=== PATIENT | male | born 1945 | race Caucasian/White ===

== ENCOUNTER 2017-11-08 14:54 | Emergency (ER) | payer MEDICARE, BC ==
[~2017-11-08] VITALS: Ht 170.2 cm; Wt 60.8 kg
--- NOTE | 2017-11-08 14:55 | NUR ---
BB daughter to ER; AMS - progressive; last known well - 1220 PM, expressive aphasia noted; left upper side weakness, pt was put on monitor, and [facility] md paul at bs.
--- NOTE | 2017-11-08 14:57 | NUR ---
CALLED CODE STROKE
[2017-11-08] MEDS ORDERED: CT SWABBABLE VALVE TRANS SET 1 EA INFUS.SET MC ONE (15:00)
[2017-11-08] MEDS ORDERED: IV NS 0.9% 250 ML IV ONE (15:00)
[2017-11-08] MEDS ORDERED: IV NS 0.9% 1,000 ML BAG IV ONE (15:00)
[2017-11-08] MEDS ORDERED: IOHEXOL-350 100 ML VIAL IV ONE (15:00)
--- NOTE | 2017-11-08 15:03 | NUR ---
CALLED [facility]'S TELESTROKE HOTLINE, SPOKE WITH ADIS, PRESENTED PT, AWAITING CALL BACK FROM DR. BOSTON (NEUROLOGIST).
--- NOTE | 2017-11-08 15:04 | NUR ---
DR. MCKENZIE ON PHONE WITH
--- NOTE | 2017-11-08 15:11 | NUR ---
PT BACK FROM CT
[2017-11-08 15:13] LABS: BASOPHILS % (AUTO) 0.3 % (0.0-2.0); EOSINOPHILS % (AUTO) 0.9 % (0.0-6.0); HEMATOCRIT 36 % (39-51); LYMPHOCYTES # (AUTO) 2.8 /CMM (0.8-4.8); LYMPHOCYTES % (AUTO) 19.2 % (20.0-44.0); MEAN CORPUSCULAR HGB CONC 34 g/dl (31.0-36.0); MEAN CORPUSCULAR VOLUME 87 fL (80-96); MONOCYTES % (AUTO) 7.1 % (2.0-12.0); NEUTROPHILS # (AUTO) 10.4 /CMM (1.8-8.9); NEUTROPHILS % (AUTO) 72.5 % (43.0-81.0); PLATELET COUNT (AUTO) 490 /CMM (150-450); RDW COEFFICIENT OF VARIATION 14.3 (11.5-15.0); RED BLOOD CELL COUNT(AUTO) 4.07 MIL/uL (4.5-6.0); WHITE BLOOD COUNT (AUTO) 14.4 K/uL (4.3-11.0)
[2017-11-08] MEDS ORDERED: ALTEPLASE 100 MG/VIAL VIAL IV ONE ×2 (15:30→16:00)
[2017-11-08 15:33] LABS: INR 0.97 (0.87-1.13)
--- NOTE | 2017-11-08 15:33 | NUR ---
IVP OVER 1 MINUTE: 5.5 MG IVP SLOW LAC PIV # 20 LAC CORRECT DOSE - WITNESSED BY 2 RNS - AKHIL AND JEY ALSO-CORRECT DOSE WTNESSED BY 1 PHARMACIST - YAKOV, PHARM D AND THE STUDENT
[2017-11-08 15:42] LABS: CALCIUM, SERUM 9.1 mg/dL (8.5-10.1); CARBON DIOXIDE 24 mmol/L (21-32); CHLORIDE 87 mmol/L (98-107); CREATININE 1.7 mg/dL (0.6-1.3); GLUCOSE 125 mg/dL (74-106); POTASSIUM 4.4 mmol/L (3.5-5.1); SODIUM SERUM 123 mmol/L (136-145); UREA NITROGEN, BLOOD 17 mg/dL (7-18)
--- NOTE | 2017-11-08 15:43 | NUR ---
xray at bs
[2017-11-08 15:48] LABS: ALANINE AMINOTRANSFERASE 27 U/L (12-78); ALBUMIN 3.5 g/dL (3.4-5.0); ALKALINE PHOSPHATASE 56 U/L (46-116); ASPARTATE AMINOTRANSFERASE 29 U/L (15-37); BILIRUBIN,DIRECT 0.2 mg/dL (0.0-0.2); BILIRUBIN,TOTAL 0.7 mg/dL (0.2-1.0); TOTAL PROTEIN, SERUM 8.1 g/dL (6.4-8.2)
[2017-11-08 15:50] LABS: TROPONIN I < 0.017 ng/mL (0.00-0.056)
--- NOTE | 2017-11-08 16:07 | NUR ---
Patient Tranfers to [facility] , report given to JANAE Obregon, tpa infusing upon transfer.
[2017-11-08 16:10] VITALS: BP 148/76
[2017-11-08] MEDS ORDERED: ONDANSETRON HCL/PF 4 MG/2 ML VIAL ONE (16:10)
[2017-11-08 16:25] LABS: CHOLESTEROL 154 mg/dL (<200); HDL CHOLESTEROL 40 mg/dL (40-60); LDL 87 mg/dL (0-99); TRIGLYCERIDES 189 mg/dL (30-150)
[2017-11-08] MEDS ORDERED: ONDANSETRON HCL/PF 4 MG/2 ML VIAL IV ONE (16:30)
== END 2017-11-08 16:39 | disposition short-term general hospital (02) ==
LOC: ER 14:55
DX: I63.9 Cerebral infarction, unspecified (principal); E87.1 Hypo-osmolality and hyponatremia; D72.829 Elevated white blood cell count, unspecified; R47.01 Aphasia; I65.22 Occlusion and stenosis of left carotid artery; I70.0 Atherosclerosis of aorta; N40.0 Benign prostatic hyperplasia without lower urinary tract symptoms
CPT/HCPCS: 36415; 70450-TC; 70496-TC; 70498-TC; 71045-TC; 80048-TC; 80061-TC; 80076-TC; 82962-TC; 84484-TC; 85025-TC; 85730-TC; A4606; J2405; J2997; J7050; Q9967; Z7610

== ENCOUNTER 2018-03-25 14:36 | Inpatient (IN) | payer MEDICARE, BC ==
[~2018-03-25] VITALS: Ht 177.8 cm; Wt 72.6 kg
--- NOTE | 2018-03-25 14:46 | NUR ---
PT BIB FAMILY TO ER BED 11. C/O R HIP PAIN S/P SLIP AND FALL AT THE BATHROOM 1 HOUR AGO. PT DENIES HEAD TRAUMA. HX OF STROKE. FAMILY STATES NO DEFICIT. STABLE VITALS. AWAITING MD SEN.
--- NOTE | 2018-03-25 14:50 | NUR ---
DR LOPEZ AT BEDSIDE FOR EVAL.
--- NOTE | 2018-03-25 14:56 | NUR ---
Note geraldspike in EDM - 03/25/18 at 1503 by NURIS PT BIB FAMILY TO ER BED 11. C/O R HIP PAIN S/P SLIP AND FALL AT THE BATHROOM 1 HOUR AGO. PT DENIES HEAD TRAUMA. HX OF STROKE. FAMILY STATES NO DEFICIT. STABLE VITALS. AWAITING MD SEN.
[2018-03-25] MEDS ORDERED: IV NS 0.9% 1,000 ML BAG IV ONE (15:00)
[2018-03-25] MEDS ORDERED: HYDROMORPHONE 1 MG/1 ML DISP.SYRIN IV ONE (15:00)
[2018-03-25] MEDS ORDERED: HYDROMORPHONE INJ 2 MG/ML DISP.SYRIN ONE (15:15)
[2018-03-25 15:16] LABS: BASOPHILS # (AUTO) 0.1 /CMM (0.0-0.2); BASOPHILS % (AUTO) 0.7 % (0.0-2.0); EOSINOPHILS % (AUTO) 0.7 % (0.0-6.0); HEMATOCRIT 36 % (39-51); HEMOGLOBIN 12.1 g/dL (13.5-17.5); LYMPHOCYTES # (AUTO) 1.7 /CMM (0.8-4.8); LYMPHOCYTES % (AUTO) 14.1 % (20.0-44.0); MEAN CORPUSCULAR HEMOGLOBIN 29 PG (26.0-33.0); MEAN CORPUSCULAR HGB CONC 33 g/dl (31.0-36.0); MEAN CORPUSCULAR VOLUME 86 fL (80-96); MONOCYTES # (AUTO) 0.6 /CMM (0.1-1.30); MONOCYTES % (AUTO) 5.3 % (2.0-12.0); NEUTROPHILS # (AUTO) 9.6 /CMM (1.8-8.9); NEUTROPHILS % (AUTO) 79.2 % (43.0-81.0); PLATELET COUNT (AUTO) 340 /CMM (150-450); RDW COEFFICIENT OF VARIATION 13.8 (11.5-15.0); RED BLOOD CELL COUNT(AUTO) 4.23 MIL/uL (4.5-6.0); WHITE BLOOD COUNT (AUTO) 12.1 K/uL (4.3-11.0)
[2018-03-25 15:25] LABS: CALCIUM, SERUM 9.4 mg/dL (8.5-10.1); CARBON DIOXIDE 25 mmol/L (21-32); CHLORIDE 103 mmol/L (98-107); CREATININE 1.1 mg/dL (0.6-1.3); GLUCOSE 134 mg/dL (74-106); POTASSIUM 4.1 mmol/L (3.5-5.1); SODIUM SERUM 136 mmol/L (136-145); UREA NITROGEN, BLOOD 12 mg/dL (7-18)
[2018-03-25 15:29] LABS: INR 0.94 (0.85-1.15)
--- NOTE | 2018-03-25 16:23 | NUR ---
CALLED KEITH THOMAS, INSERT CUTTER WAS PAGED.
[2018-03-25] MEDS ORDERED: IV NS 0.9% 1,000 ML IV PRN (16:38)
[2018-03-25] MEDS ORDERED: LIDOCAINE 2% JEL UROJET 10 ML MM ONE (16:42)
[2018-03-25] MEDS ORDERED: MAG HYDROX/AL HYDROX/SIMETH 30 ML UDC PO PRN (17:00)
[2018-03-25] MEDS ORDERED: Z GUARD REMEDY 2 OZ OINT TP PRN (17:00)
[2018-03-25] MEDS ORDERED: ZOLPIDEM TARTRATE 5 MG TABLET PO PRN (17:00)
[2018-03-25] MEDS ORDERED: HYDROCODONE/APAP 5/325MG 1 EACH TABLET PO PRN (17:00)
[2018-03-25] MEDS ORDERED: MAGNESIUM HYDROXIDE 30 ML UDC PO PRN (17:00)
[2018-03-25] MEDS ORDERED: ONDANSETRON HCL/PF 4 MG/2 ML VIAL IVP PRN (17:00)
[2018-03-25] MEDS ORDERED: ACETAMINOPHEN 325 MG TABLET PO PRN (17:00)
--- NOTE | 2018-03-25 17:00 | NUR ---
REPORT GIVEN TO SILVIA. PT AWAITING TRANSFER TO FLOOR.
[2018-03-25] MEDS ORDERED: ALFU10TA10 PO (17:08)
[2018-03-25] MEDS ORDERED: SIMV40TA5 PO (17:08)
[2018-03-25] MEDS ORDERED: ASPI-1169 PO (17:08)
--- NOTE | 2018-03-25 18:00 | NUR ---
MS RN RECEIVED ON BED, AWAKE,ALERT,ORIENTED X4,IRAQI SPEAKING MAN, S/P FALL W/ RIGHT FEMORAL NECK FRACTURE, DENES PAIN AT THIS TIME,FAMILY AT BEDSIDE.
--- NOTE | 2018-03-25 19:05 | NUR ---
MS RN AT BEDSIDE, DINNER SERVED,STARTED ON IV,TOLERATED WELL.
--- NOTE | 2018-03-25 19:10 | NUR ---
MS RN OPENING NOTE Patient was seen sitting upright in bed AAOx4, breathing comfortably on RA with no SOB, and currently no signs of acute distress. NS at 75ml/hr is running through the left AC with no signs of leaking or infiltration. Patel is draining clear yellow urine. Patient with right femoral fracture states that he only has pain with movement and that he is currently without pain at rest; patient does not request any medications for pain relief at this time. Bed is in the low/locked position, two side rails up, and call wang within reach. Will continue to monitor.
[2018-03-25 19:49] VITALS: BP 136/65
[2018-03-25 20:00] VITALS: BP 136/65
[2018-03-25] MEDS: HYDROMORPHONE INJ 2 MG/ML DISP.SYRIN IV PRN (21:30)
--- NOTE | 2018-03-25 21:30 | NUR ---
MS RN NOTE - Dilaudid Patient requested pain medication for 03/21 right hip/leg pain primarily occurring with movement and position change (s/p fracture to the right femoral neck). 0.5mg IV Dilaudid administered as ordered for severe pain. Will continue to monitor.
--- NOTE | 2018-03-26 00:19 | NUR ---
MS RN NOTE - Ambien Patient stated that he has had difficulty sleeping tonight and requested Ambien to help him sleep. 5mg PO Ambien administered per orders for prn use. Will continue to monitor.
[2018-03-26 03:01] LABS: APPEARANCE,URINE CLEAR (CLEAR); BILIRUBIN,URINE NEGATIVE (NEGATIVE); BLOOD, URINE 2+ Ery/uL (NEGATIVE); COLOR,URINE YELLOW (YELLOW); KETONES,URINE 1+ (NEGATIVE); LEUKOCYTE ESTERASE ,URINE NEGATIVE (NEGATIVE); NITRITE, URINE NEGATIVE (NEGATIVE); PROTEIN,URINE NEGATIVE (NEGATIVE); UGLUCOSE NEGATIVE (NEGATIVE); UROBILINOGEN,URINE 0.2 EU/dL (0.2)
[2018-03-26 03:05] LABS: BACTERIA,URINE None seen /HPF (None Seen); SQUAMOUS EPITHELIAL CELL,UR Few /HPF (None Seen); WBC,URINE 0-2 /HPF (0-3)
[2018-03-26] MEDS: HYDROMORPHONE INJ 2 MG/ML DISP.SYRIN IV PRN ×4 (03:38→18:28)
--- NOTE | 2018-03-26 03:38 | NUR ---
MS RN NOTE - Dilaudid Patient requested pain medication for 8/10 pain in the right hip/leg (s/p hip fracture). Pain is worse with movement, but pain also states that he is experiencing intermittent shooting pain without movement. 0.5mg IV Dilaudid given as ordered for severe pain. Patient has had no adverse reactions to previous dose of Dilaudid. Will continue to monitor.
[2018-03-26] MEDS: HYDROCODONE/APAP 5/325MG 1 EACH TABLET PO PRN (06:01)
--- NOTE | 2018-03-26 06:01 | NUR ---
MS RN NOTE - [place] Patient requested pain medication for 6/10 right hip pain. 5/325mg PO [place] given as ordered for prn pain relief.
--- NOTE | 2018-03-26 07:10 | NUR ---
RN NOTES PT IS SITTING UP IN BED, AWAKE AND ALERT, RESTING COMFORTABLY. PT ON RA, RESPIRATIONS ARE EVEN AND UNLABORED. IV ON LAC INTACT AND RUNNING NS @75ML/HR. MARKS CATHETER IS IN PLACE AND DRAINING TO GRAVITY. NO SIGNS OF DISTRESS NOTED. SAFETY MEASURES ARE IN PLACE, CALL LIGHT IS IN REACH. WILL CONTINUE TO MONITOR.
[2018-03-26 07:17] LABS: BASOPHILS % (AUTO) 0.2 % (0.0-2.0); EOSINOPHILS % (AUTO) 0.6 % (0.0-6.0); HEMATOCRIT 32 % (39-51); HEMOGLOBIN 10.9 g/dL (13.5-17.5); LYMPHOCYTES # (AUTO) 1.4 /CMM (0.8-4.8); LYMPHOCYTES % (AUTO) 14.7 % (20.0-44.0); MEAN CORPUSCULAR HEMOGLOBIN 30 PG (26.0-33.0); MEAN CORPUSCULAR HGB CONC 34 g/dl (31.0-36.0); MEAN CORPUSCULAR VOLUME 88 fL (80-96); MONOCYTES # (AUTO) 0.4 /CMM (0.1-1.30); MONOCYTES % (AUTO) 4.7 % (2.0-12.0); NEUTROPHILS # (AUTO) 7.5 /CMM (1.8-8.9); NEUTROPHILS % (AUTO) 79.8 % (43.0-81.0); PLATELET COUNT (AUTO) 294 /CMM (150-450); RDW COEFFICIENT OF VARIATION 14.6 (11.5-15.0); WHITE BLOOD COUNT (AUTO) 9.4 K/uL (4.3-11.0)
[2018-03-26 07:39] LABS: CALCIUM, SERUM 8.5 mg/dL (8.5-10.1); CARBON DIOXIDE 25 mmol/L (21-32); CHLORIDE 103 mmol/L (98-107); CREATININE 0.8 mg/dL (0.6-1.3); GLUCOSE 110 mg/dL (74-106); MAGNESIUM 1.9 mg/dL (1.8-2.4); PHOSPHORUS 2.9 mg/dL (2.5-4.9); POTASSIUM 4.2 mmol/L (3.5-5.1); SODIUM SERUM 137 mmol/L (136-145); UREA NITROGEN, BLOOD 10 mg/dL (7-18)
--- NOTE | 2018-03-26 07:39 | NUR ---
MS RN CLOSING NOTE Patient is AAOx4, breathing on RA with no SOB, and currently no signs of acute distress. Patient's only complaint has been right hip pain s/p hip fracture; pain medications given as ordered. Otherwise, patient slept well overnight and remains in stable condition. NS at 75ml/hr is running through the left AC. Call wang is within reach. Patient care endorsed to day shift nurse.
[2018-03-26 07:42] LABS: INR 0.96 (0.87-1.13)
[2018-03-26 08:00] VITALS: BP 145/80
[2018-03-26] MEDS: ASPIRIN 81 MG TAB.CHEW PO SCH (08:32)
[2018-03-26 09:34] LABS: THYROID STIMULATING HORMONE 1.61 uIU/mL (0.358-3.74)
[2018-03-26] MEDS ORDERED: HYDROCODONE/APAP 10/325MG 1 EA TABLET PO PRN (11:30)
[2018-03-26 12:00] VITALS: BP 131/70
[2018-03-26 16:00] VITALS: BP 131/70
--- NOTE | 2018-03-26 18:52 | NUR ---
RN NOTES PT IS LAYING DOWN IN BED, AWAKE AND ALERT. PT ON RA, RESPIRATIONS ARE EVEN AND UNLABORED. IV ON LAC INTACT AND RUNNING NS @ 75ML/HR. MARKS CATHETER IS IN PLACE AND DRAINING TO GRAVITY. DILAUDID 1 MG LAST GIVEN @ 1830 FOR PAIN MANAGEMENT. MILK OF MAGNESIA GIVEN @ 1800 FOR CONSTIPATION, NO BM ON SHIFT. NO SIGNS OF DISTRESS NOTED. SAFETY MEASURES ARE IN PLACE, CALL LIGHT IS IN REACH. WILL ENDORSE TO CARTON STAPLER RN FOR CONTINUITY OF CARE.
--- NOTE | 2018-03-26 19:20 | NUR ---
RN OPENING NOTES RECEIVED PATIENT IN BED, AWAKE, ALERT AND ORIENTED X 4, NO SOB, BREATHING EVEN AND UNLABORED, DENIES PAIN AT THIS TIME. PATIENT IS AWARE OF SAFETY NEEDS. PLACED BED IN LOW POSITION AND CALL LIGHT WITHIN EASY REACH. ALL PATIENT'S NEEDS ATTENDED TO. MARKS CATHETER DRAINING WELL WITH YELLOW URINE. PT AWAITING FOR AVAILABLE FOR TRANSFER TO ANOTHER ACUTE FACILITY. WILL CONTINUE TO MONITOR PT.
[2018-03-26 20:00] VITALS: BP 133/70
--- NOTE | 2018-03-26 21:20 | NUR ---
RN NOTES PATIENT SEEN AND EXAMINED BY DR. CONTRERAS WITH NEW ORDERS. ALL ORDERS NOTED AND CARRIED OUT.
[2018-03-26] MEDS ORDERED: ENOXAPARIN SODIUM 40 MG/0.4 ML DISP.SYRIN SQ ONE (22:00)
[2018-03-26] MEDS ORDERED: SIMVASTATIN 40 MG TABLET PO SCH (22:00)
--- NOTE | 2018-03-27 00:05 | NUR ---
RN NOTES RELAYED IRON LEVEL=LOW @ 29 TO DAKOTA JEFF WITH NO NEW ORDERS.
--- NOTE | 2018-03-27 03:39 | NUR ---
RN NOTES RECEIVED CALL FROM PAMELA OF [facility] TRANSFER UNIT. PER PAMELA, THEY ARE WAITING FOR FINANCIAL CLEARANCE AND AN AVAILABLE BED FOR THE PATIENT. FURTHER UPDATES WILL BE GIVEN TO STAFF ACCOUNTANT IN THE MORNING.
[2018-03-27] MEDS: HYDROCODONE/APAP 5/325MG 1 EACH TABLET PO PRN (03:42)
--- NOTE | 2018-03-27 06:22 | NUR ---
RN CLOSING NOTES PATIENT IN BED, RESTING, ASLEEP BUT EASILY AROUSABLE, ALERT/ORIENTED X 4, NO SOB, BREATHING EVEN AND UNLABORED, IN NO ACUTE DISTRESS. PT ABLE TO MAKE NEEDS KNOWN. ALL PATIENT'S NEEDS ATTENDED TO THROUGHOUT THE SHIFT, MARKS CATHETER DRAINING WELL WITH YELLOW URINE. TURNED AND REPOSITIONED Q2HRS TOLERATED. PT WAITING FOR AVAILABLE BED AT [facility]. PLACED BED IN LOW POSITION AND LOCKED IN PLACE. PT WITH NO BOWEL MOVEMENT AND PER PT HE IS PASSING GAS AND WILL WAIT. PT NOTED TO HAVE ACTIVE BOWEL SOUNDS. WILL ENDORSE TO AM SHIFT NURSE FOR CONTINUITY OF CARE.
[2018-03-27 06:32] LABS: BASOPHILS % (AUTO) 0.4 % (0.0-2.0); EOSINOPHILS % (AUTO) 1.9 % (0.0-6.0); HEMATOCRIT 31 % (39-51); HEMOGLOBIN 10.3 g/dL (13.5-17.5); LYMPHOCYTES # (AUTO) 1.7 /CMM (0.8-4.8); LYMPHOCYTES % (AUTO) 18.6 % (20.0-44.0); MEAN CORPUSCULAR HEMOGLOBIN 29 PG (26.0-33.0); MEAN CORPUSCULAR HGB CONC 34 g/dl (31.0-36.0); MEAN CORPUSCULAR VOLUME 87 fL (80-96); MONOCYTES # (AUTO) 0.7 /CMM (0.1-1.30); MONOCYTES % (AUTO) 8.2 % (2.0-12.0); NEUTROPHILS # (AUTO) 6.3 /CMM (1.8-8.9); NEUTROPHILS % (AUTO) 70.9 % (43.0-81.0); PLATELET COUNT (AUTO) 279 /CMM (150-450); RDW COEFFICIENT OF VARIATION 14.4 (11.5-15.0); WHITE BLOOD COUNT (AUTO) 8.9 K/uL (4.3-11.0)
[2018-03-27 06:44] LABS: ALANINE AMINOTRANSFERASE 11 U/L (12-78); ALBUMIN 2.8 g/dL (3.4-5.0); ALKALINE PHOSPHATASE 63 U/L (46-116); ASPARTATE AMINOTRANSFERASE 11 U/L (15-37); BILIRUBIN,TOTAL 0.5 mg/dL (0.2-1.0); CALCIUM, SERUM 8.4 mg/dL (8.5-10.1); CARBON DIOXIDE 26 mmol/L (21-32); CHLORIDE 102 mmol/L (98-107); CREATININE 0.8 mg/dL (0.6-1.3); GLUCOSE 128 mg/dL (74-106); PHOSPHORUS 2.7 mg/dL (2.5-4.9); SODIUM SERUM 136 mmol/L (136-145); TOTAL PROTEIN, SERUM 6.4 g/dL (6.4-8.2); UREA NITROGEN, BLOOD 11 mg/dL (7-18)
--- NOTE | 2018-03-27 07:35 | NUR ---
MS RN NOTES PATIENT RECEIVED RESTING INSIDE ROOM. AWAKE, ALERT AND ORIENTED X 4, VERBALLY RESPONSIVE AND RESPONDS TO VERBAL AND TACTILE STIMULI. NO CHANGES IN LOC NOTED AT THIS TIME. PATIENT CALM AND RELAXED. DENIES ANY PAIN OR DISCOMFORT AT THIS TIME. PATIENT VERBALIZED THAT HE ONLY FEELS PAIN ON HIS RIGHT HIP WITH MOVEMENT. WITH ENDORSEMENT FROM PREVIOUS SHIFT THAT PATIENT TO BE TRANSFERRED TO [facility] FOR [facility]. PATIENT IV INTACT AND PATENT. WILL CONTINUE TO MONITOR. BED LOCKED AND IN LOW POSITION. BILATERAL UPPER SIDE RAILS UP AND LOCKED. CALL LIGHT WITHIN EASY REACH
[2018-03-27 08:00] VITALS: BP 112/69
[2018-03-27] MEDS: ASPIRIN 81 MG TAB.CHEW PO SCH ×2 (08:50→08:55)
[2018-03-27] MEDS ORDERED: Alfuzosin Hcl 10 MG PO SCH (09:00)
--- NOTE | 2018-03-27 09:03 | NUR ---
MS RN NOTES DURING MEDICATION ADMINISTRATION, PATIENT VERBALIZED THAT HE MIGHT HAVE SURGERY AT [facility] TODAY. PER PATIENT, HIS DAUGHTER IS TALKING TO A DOCTOR A [facility]. REFUSED TO TAKE ASPIRIN PO. MEDICATION WASTED. PATIENT WITH COMPLAIN OF SEVERE PAIN ON RIGHT HIP. VERBALIZED THAT HE WAS TRYING TO MOVE ON THE BED AND FELT PAIN ON HIS RIGHT HIP. REQUESTED TO HAVE NORCO 10/325 MG. MEDICATION GIVEN ORDERED PRN. WILL CONTINUE TO MONITOR
[2018-03-27] MEDS: HYDROMORPHONE INJ 2 MG/ML DISP.SYRIN IV PRN ×2 (12:22→18:53)
[2018-03-27 16:00] VITALS: BP 127/65
--- NOTE | 2018-03-27 19:31 | NUR ---
MS RN NOTES PATIENT FOR DISCHARGE TODAY. TO TRANSFER TO [facility]. REPORT GIVEN TO CORD RN AT [facility]. PATIENT AWAKE, ALERT AND ORIENTED X 4. VERBALLY RESPONSIVE AND RESPONDS TO VERBAL AND TACTILE STIMULI. BREATHING EVEN AND UNLABORED. VERBALIZING DISCOMFORT ON RIGHT HIP WITH MOVEMENT. PATIENT LEFT UNIT AT 1930 VIA GURNEY. DISCHARGE INSTRUCTIONS AND EDUCATION GIVEN, ALL BELONGINGS COMPLETE UPON DISCHARGE, NO REPORT OF MISSING INVENTORY. MD AWARE OF DISCHARGE
[2018-03-27] MEDS ORDERED: ENOXAPARIN SODIUM 40 MG/0.4 ML DISP.SYRIN SQ SCH (21:00)
== END 2018-03-27 19:30 | disposition short-term general hospital (02) | DRG 536 ==
LOC: ER 14:41 → MED 16:46
PROVIDERS: ADMIT Internal Medicine; ATTEND Internal Medicine
DX: S72.011A Unspecified intracapsular fracture of right femur, initial encounter for closed fracture (principal); D72.829 Elevated white blood cell count, unspecified; N40.0 Benign prostatic hyperplasia without lower urinary tract symptoms; E78.5 Hyperlipidemia, unspecified; I10 Essential (primary) hypertension; W18.30XA Fall on same level, unspecified, initial encounter; Y93.9 Activity, unspecified; Y92.009 Unspecified place in unspecified non-institutional (private) residence as the place of occurrence of the external cause; M25.451 Effusion, right hip; D64.9 Anemia, unspecified; R79.89 Other specified abnormal findings of blood chemistry; D32.9 Benign neoplasm of meninges, unspecified; Z86.73 Personal history of transient ischemic attack (TIA), and cerebral infarction without residual deficits
CPT/HCPCS: 36415; 71045-TC; 72192-TC; 80048-TC; 80053-TC; 80061-TC; 81000-TC; 82306; 82728-TC; 83540-TC; 83735-TC; 84100-TC; 84439-TC; 84443-TC; 85025-TC; 85610-TC; 85730-TC; 86850-TC; 87081-TC; 87086-TC; 93307-TC; A4349; A4606; J1170; J1650; J3490; J7030; Z7610

== ENCOUNTER 2021-11-03 12:05 | Inpatient (IN) | payer MEDICARE, BC ==
[~2021-11-03] VITALS: Ht 167.6 cm; Wt 66.7 kg
[~2021-11-03 12:05] MED LIST: ALFU10TA10 PO; ASPI-1169 PO; SIMV-49 PO
--- NOTE | 2021-11-03 12:30 | NUR ---
[id number] FROM HOME, FOUND LAYING IN THE FRONT PORCH. PER EMS SYNCOPAL. AAOX4 PLACED ON BED. CHANGED TO [facility]OSPITAL [facility].
--- NOTE | 2021-11-03 12:45 | NUR ---
BLOOD DRAWN SENT TO LAB.
[2021-11-03 13:05] LABS: BASOPHILS % (AUTO) 0.3 % (0.0-2.0); EOSINOPHILS % (AUTO) 0.7 % (0.0-6.0); HEMATOCRIT 35 % (39-51); HEMOGLOBIN 11.6 g/dL (13.5-17.5); LYMPHOCYTES # (AUTO) 0.8 K/uL (0.8-4.8); LYMPHOCYTES % (AUTO) 7.3 % (20.0-44.0); MEAN CORPUSCULAR HGB CONC 34 g/dl (31.0-36.0); MEAN CORPUSCULAR VOLUME 89 fL (80-96); MONOCYTES # (AUTO) 0.7 K/uL (0.1-1.30); MONOCYTES % (AUTO) 6.1 % (2.0-12.0); NEUTROPHILS # (AUTO) 9.2 K/uL (1.8-8.9); NEUTROPHILS % (AUTO) 85.6 % (43.0-81.0); PLATELET COUNT (AUTO) 257 K/uL (150-450); RED BLOOD CELL COUNT(AUTO) 3.89 MIL/uL (4.5-6.0); WHITE BLOOD COUNT (AUTO) 10.7 K/uL (4.3-11.0)
[2021-11-03 13:40] LABS: CALCIUM, SERUM 9.6 mg/dL (8.5-10.1); CARBON DIOXIDE 23 mmol/L (21-32); CHLORIDE 101 mmol/L (98-107); GLUCOSE 106 mg/dL (74-106); POTASSIUM 3.8 mmol/L (3.5-5.1); SODIUM SERUM 138 mmol/L (136-145); UREA NITROGEN, BLOOD 44 mg/dL (7-18)
[2021-11-03 13:46] LABS: ALANINE AMINOTRANSFERASE 6 U/L (12-78); ALBUMIN 3.5 g/dL (3.4-5.0); ALKALINE PHOSPHATASE 71 U/L (46-116); ASPARTATE AMINOTRANSFERASE 18 U/L (15-37); BILIRUBIN,DIRECT 0.1 mg/dL (0.0-0.2); TOTAL PROTEIN, SERUM 7.8 g/dL (6.4-8.2)
[2021-11-03] MEDS ORDERED: OXYB10TA30 PO (13:46)
[2021-11-03] MEDS ORDERED: TAMS-12 PO (13:46)
[2021-11-03] MEDS ORDERED: ROSU40TA23 PO (13:46)
[2021-11-03] MEDS ORDERED: LOSA50TA39 PO (13:46)
--- NOTE | 2021-11-03 14:07 | NUR ---
FOLLOWED UP CHEMISTRY RESULTS, WILL RELEASE IN FEW MINUTES
[2021-11-03 14:17] LABS: BILIRUBIN,TOTAL 0.4 mg/dL (0.2-1.0)
--- NOTE | 2021-11-03 14:35 | NUR ---
URINE SAMPLE SENT TO LAB
--- NOTE | 2021-11-03 14:49 | NUR ---
DAKOTA RUEDA AT BEDSIDE, INSERTED A MARKS CATHETER, COLLECTED 550CC OF URINE. REMOVED MARKS CATHETER. PT TOLERATED WELL.
--- NOTE | 2021-11-03 14:49 | NUR ---
TIME MARYBETH AT BEDSIDE, INSERTED A MARKS CATHETER, COLLECTED 550CC OF URINE. REMOVED MARKS CATHETER. PT TOLERATED WELL.
--- NOTE | 2021-11-03 14:49 | NUR ---
Michelle porter in EDM - 11/03/21 at 1830 by JOVANA TIME MARYBETH AT BEDSIDE, INSERTED A MARKS CATHETER, COLLECTED 550CC OF URINE. REMOVED MARKS CATHETER. PT TOLERATED WELL.
[2021-11-03] MEDS ORDERED: IV NS 0.9% 1,000 ML IV ONE (15:30)
[2021-11-03 15:42] LABS: BILIRUBIN,URINE NEGATIVE (NEGATIVE); COLOR,URINE YELLOW (YELLOW); LEUKOCYTE ESTERASE ,URINE NEGATIVE (NEGATIVE); NITRITE, URINE NEGATIVE (NEGATIVE); PH,URINE 6.5 (5.0-8.0); PROTEIN,URINE 30 mg/dl (NEGATIVE); UGLUCOSE NEGATIVE (NEGATIVE); UROBILINOGEN,URINE 0.2 EU/dL (0.2)
[2021-11-03 15:55] LABS: BACTERIA,URINE None seen /HPF (None Seen); FINE GRANULAR CASTS,URINE RARE /LPF (None Seen); WBC,URINE 0-2 /HPF (0-3)
[2021-11-03] MEDS ORDERED: FAMOTIDINE (20 MG) 20 MG TABLET ONE (16:23)
[2021-11-03] MEDS ORDERED: FAMOTIDINE (20 MG) 20 MG TABLET PO ONE (16:30)
[2021-11-03] MEDS ORDERED: FINA5TAB11 PO (16:52)
[2021-11-03] MEDS ORDERED: ALFU10TA10 PO (16:52)
[2021-11-03] MEDS ORDERED: THIA100T70 PO (16:52)
[2021-11-03] MEDS ORDERED: ASCO500C17 PO (16:52)
[2021-11-03] MEDS ORDERED: CYAN-51 PO (16:52)
[2021-11-03] MEDS ORDERED: SIMV-49 PO (16:52)
[2021-11-03] MEDS ORDERED: Thiamine 100 MG in IV D5W 50 ML IV STA (16:52)
[2021-11-03] MEDS ORDERED: hydrALAZINE HCL IV 20 MG VIAL IV ONE (17:00)
[2021-11-03] MEDS ORDERED: ONDANSETRON HCL/PF 4 MG/2 ML VIAL IV ONE (17:00)
[2021-11-03] MEDS ORDERED: SUCRALFATE 1 G/10 ML UDC PO ONE (17:00)
[2021-11-03] MEDS ORDERED: PANTOPRAZOLE 40 MG VIAL IV ONE (17:00)
[2021-11-03] MEDS ORDERED: LIDOCAINE 2% JEL UROJET 10 ML MM ONE (17:16)
[2021-11-03] MEDS ORDERED: hydrALAZINE HCL IV 20 MG VIAL ONE (17:22)
[2021-11-03] MEDS ORDERED: SUCRALFATE 1 G TABLET ONE (17:23)
[2021-11-03] MEDS ORDERED: ONDANSETRON HCL/PF 4 MG/2 ML VIAL ONE (17:23)
[2021-11-03] MEDS ORDERED: PANTOPRAZOLE 40 MG VIAL ONE (17:23)
[2021-11-03] MEDS ORDERED: SUCRALFATE 1 G/10 ML UDC ONE (17:26)
--- NOTE | 2021-11-03 19:52 | NUR ---
room 109
--- NOTE | 2021-11-03 20:39 | NUR ---
MSRA SWAB COLLECTED AND SENT TO LAB
[2021-11-03] MEDS ORDERED: Z GUARD REMEDY 4 OZ OINT TP PRN (21:00)
[2021-11-03] MEDS ORDERED: ONDANSETRON HCL/PF 4 MG/2 ML VIAL IVP PRN (21:00)
[2021-11-03] MEDS ORDERED: ACETAMINOPHEN 325 MG TABLET PO PRN (21:00)
--- NOTE | 2021-11-03 21:00 | NUR ---
REPORT GIVEN TO JANAE SAVAGE FOR MARY
--- NOTE | 2021-11-03 21:13 | NUR ---
PT TRANSFERRED TO TELE 109 VIA ACLS PROTOCOL.
[2021-11-03 21:15] VITALS: BP 124/63
--- NOTE | 2021-11-03 21:25 | NUR ---
RN NOTES ADMITTED A 76 Y/O MALE PATIENT FROM ER VIA GURNEY A/O X4 ABLE TO MAKE NEEDS KNOWN. WITH IV ACCESS AT R WRIST # 18 PATENT FLUSHES WELL. VITAL SIGNS TAKEN AND RECORDED. AFEBRILE. SAFELY TRANSFER TO BED. BODY ASSESSMENT DONE. BELONGINGS ACCOUNTED. ALL SAFETY MEASURES IN PLACE AT ALL TIMES. HOB ELEVATED. CALL LIGHT WITHIN REACH. WILL CLOSELY MONITOR THE PATIENT.
[2021-11-03] MEDS: IV 1/2NS 1000 ML 1,000 ML IV PRN (22:12)
[2021-11-03] MEDS: ENOXAPARIN SODIUM 30 MG/0.3 ML DISP.SYRIN SQ SCH (22:14)
[2021-11-03] MEDS: SIMVASTATIN 20 MG TABLET PO SCH (22:14)
[2021-11-04] MEDS: SUCRALFATE 1 G/10 ML UDC PO SCH ×5 (00:16→23:20)
--- NOTE | 2021-11-04 06:46 | NUR ---
RN NOTES REMAINED ON STABLE CONDITION NO SIGNIFICANT CHANGES. WITH IV ACCESS ON R WRIST PATENT ON CONTINUOS IV OF .45 NS @ 75CC/HR. ALL DUE MEDS GIVEN ORDERED. PATIENT IN BED ASLEEP. ALL SAFETY MEASURES IN PLACE AT ALL TIMES. HOB ELEVATED, CALL LIGHT WITHIN REACH. BED ON LOWEST POSITION AND LOCKED.
--- NOTE | 2021-11-04 07:00 | NUR ---
MS RN OPENING NOTES PATIENT LAYING IN BED, A/O X4, TOLERATING WELL ON ROOM AIR WITH NO S/S OF RESPIRATORY DISTRESS AT THIS TIME. NO PAIN OR DISCOMFORT NOTED. 18 G R WRIST WITH 1/2 @ 75 ML/HR . SAFETY MEASURES IN PLACE: BED IN LOWEST LOCKED POSITION, SIDE RAILS UP X 2, CALL LIGHT WITHIN REACH, HOB ELEVATED. WILL CONTINUE TO MONITOR.
[2021-11-04 07:49] LABS: BASOPHILS # (AUTO) 0.1 K/uL (0.0-0.2); BASOPHILS % (AUTO) 0.7 % (0.0-2.0); EOSINOPHILS % (AUTO) 2.4 % (0.0-6.0); HEMATOCRIT 35 % (39-51); HEMOGLOBIN 11.4 g/dL (13.5-17.5); LYMPHOCYTES # (AUTO) 1.4 K/uL (0.8-4.8); LYMPHOCYTES % (AUTO) 14.9 % (20.0-44.0); MEAN CORPUSCULAR HGB CONC 33 g/dl (31.0-36.0); MEAN CORPUSCULAR VOLUME 90 fL (80-96); MONOCYTES # (AUTO) 0.8 K/uL (0.1-1.30); MONOCYTES % (AUTO) 8.4 % (2.0-12.0); NEUTROPHILS % (AUTO) 73.6 % (43.0-81.0); PLATELET COUNT (AUTO) 260 K/uL (150-450); RED BLOOD CELL COUNT(AUTO) 3.87 MIL/uL (4.5-6.0); WHITE BLOOD COUNT (AUTO) 9.4 K/uL (4.3-11.0)
[2021-11-04] MEDS: THIAMINE HCL 100 MG TABLET PO SCH (09:36)
[2021-11-04] MEDS: TAMSULOSIN 0.4 MG CAP.SR.24H PO SCH (09:42)
[2021-11-04] MEDS: LOSARTAN POTASSIUM 50 MG TABLET PO SCH (09:42)
[2021-11-04] MEDS: OXYBUTYNIN CHLORIDE ER 5 MG TAB PO SCH (09:43)
[2021-11-04] MEDS: FINASTERIDE (5 MG) 5 MG TABLET PO SCH (09:43)
[2021-11-04] MEDS: ASPIRIN 81 MG TAB.CHEW PO SCH (09:43)
[2021-11-04] MEDS: PANTOPRAZOLE 40 MG VIAL IV SCH (09:44)
[2021-11-04 12:08] LABS: CALCIUM, SERUM 8.9 mg/dL (8.5-10.1); CARBON DIOXIDE 21 mmol/L (21-32); CHLORIDE 105 mmol/L (98-107); CREATININE 3.4 mg/dL (0.6-1.3); GLUCOSE 94 mg/dL (74-106); PHOSPHORUS 3.6 mg/dL (2.5-4.9); POTASSIUM 3.9 mmol/L (3.5-5.1); SODIUM SERUM 139 mmol/L (136-145); UREA NITROGEN, BLOOD 37 mg/dL (7-18)
--- NOTE | 2021-11-04 15:57 | NUR ---
left message to [phone] for consultation waiting for returnining call back
[2021-11-04 18:23] LABS: BILIRUBIN,URINE NEGATIVE (NEGATIVE); COLOR,URINE YELLOW (YELLOW); LEUKOCYTE ESTERASE ,URINE NEGATIVE (NEGATIVE); NITRITE, URINE NEGATIVE (NEGATIVE); PH,URINE 6.5 (5.0-8.0); PROTEIN,URINE TRACE mg/dl (NEGATIVE); UGLUCOSE NEGATIVE (NEGATIVE); UROBILINOGEN,URINE 0.2 EU/dL (0.2)
--- NOTE | 2021-11-04 18:30 | NUR ---
MS RN CLOSING NOTES PATIENT LAYING IN BED, A/O X4, TOLERATING WELL ON ROOM AIR WITH NO S/S OF RESPIRATORY DISTRESS AT THIS TIME. NO PAIN OR DISCOMFORT NOTED. NEW IV ACCESS TO BE INSERTED, ONCOMING RN MADE AWARE. SAFETY MEASURES IN PLACE: BED IN LOWEST LOCKED POSITION, SIDE RAILS UP X 2, CALL LIGHT WITHIN REACH, HOB ELEVATED. WILL ENDORSE TO GENETIC ENGINEER FOR MARY.
[2021-11-04 18:40] LABS: BACTERIA,URINE Few /HPF (None Seen); SQUAMOUS EPITHELIAL CELL,UR Few /HPF (None Seen); WBC,URINE 0-2 /HPF (0-3)
--- NOTE | 2021-11-04 19:20 | NUR ---
MS/RN OPENING NOTE RECEIVED PATIENT RESTING IN BED. AWAKE, ALERT AND ORIENTED X 4. ABLE TO MAKE NEEDS KNOWN. DENIES PAIN AT THIS TIME. CONTINUES ON ROOM AIR WITH NO S/SX OF RESPIRATORY DISTRESS NOTED. NO IV ACCESS AT THIS TIME. ORDER FOR MIDLINE IN PLACED. CONTINUES ON CARDIAC DIET WITH NO S/SX OF ASPIRATION NOTED. CALL LIGHT WITHIN REACH. ASPIRATION, FALL AND SAFETY PRECAUTIONS MAINTAINED. WILL CONTINUE TO MONITOR.
--- NOTE | 2021-11-04 19:50 | NUR ---
MS/RN NOTE ABLE TO PLACE PERIPHERAL IV ACCESS TO RIGHT HAND #22G. CANCELLED ORDER FOR MIDLINE PLACEMENT AND NURSING APPLIQUER REYES WU. RESTARTING IVF 1/2 NS @ 75ML/HR.
[2021-11-04 20:15] LABS: CHOLESTEROL 132 mg/dL (<200); HDL CHOLESTEROL 55 mg/dL (40-60); LDL 54 mg/dL (0-99); TRIGLYCERIDES 155 mg/dL (30-150)
[2021-11-04] MEDS: IV 1/2NS 1000 ML 1,000 ML IV PRN (20:45)
[2021-11-04] MEDS: SIMVASTATIN 20 MG TABLET PO SCH (21:28)
[2021-11-04] MEDS: ENOXAPARIN SODIUM 30 MG/0.3 ML DISP.SYRIN SQ SCH (21:29)
[2021-11-05] MEDS: SUCRALFATE 1 G/10 ML UDC PO SCH ×4 (05:27→23:40)
[2021-11-05 06:13] LABS: BASOPHILS % (AUTO) 0.2 % (0.0-2.0); EOSINOPHILS % (AUTO) 2.6 % (0.0-6.0); HEMATOCRIT 31 % (39-51); HEMOGLOBIN 10.3 g/dL (13.5-17.5); LYMPHOCYTES # (AUTO) 1.2 K/uL (0.8-4.8); LYMPHOCYTES % (AUTO) 13.6 % (20.0-44.0); MEAN CORPUSCULAR HGB CONC 34 g/dl (31.0-36.0); MEAN CORPUSCULAR VOLUME 90 fL (80-96); MONOCYTES # (AUTO) 0.7 K/uL (0.1-1.30); MONOCYTES % (AUTO) 7.3 % (2.0-12.0); NEUTROPHILS # (AUTO) 6.9 K/uL (1.8-8.9); NEUTROPHILS % (AUTO) 76.3 % (43.0-81.0); PLATELET COUNT (AUTO) 225 K/uL (150-450); RED BLOOD CELL COUNT(AUTO) 3.41 MIL/uL (4.5-6.0)
--- NOTE | 2021-11-05 06:15 | NUR ---
MS/RN CLOSING NOTE PATIENT CURRENTLY SLEEPING IN BED. ALERT AND ORIENTED X 4. ABLE TO MAKE NEEDS KNOWN. DENIES PAIN AT THIS TIME. CONTINUES ON ROOM AIR WITH NO S/SX OF RESPIRATORY DISTRESS NOTED. IV ACCESS TO RIGHT HAND #22G INTACT AND PATENT. CONTINUES ON IVF 1/2 NS @ 75ML/HR. CONTINUES ON CARDIAC DIET WITH NO S/SX OF ASPIRATION NOTED. CALL LIGHT WITHIN REACH. ASPIRATION, FALL AND SAFETY PRECAUTIONS MAINTAINED. WILL ENDORSE PLAN OF CARE TO ONCOMING SHIFT.
[2021-11-05 06:39] LABS: CALCIUM, SERUM 8.3 mg/dL (8.5-10.1); CARBON DIOXIDE 24 mmol/L (21-32); CHLORIDE 106 mmol/L (98-107); CREATININE 3.2 mg/dL (0.6-1.3); GLUCOSE 135 mg/dL (74-106); PHOSPHORUS 2.7 mg/dL (2.5-4.9); POTASSIUM 3.7 mmol/L (3.5-5.1); SODIUM SERUM 138 mmol/L (136-145); UREA NITROGEN, BLOOD 34 mg/dL (7-18)
--- NOTE | 2021-11-05 07:48 | NUR ---
RN OPENING NOTES Patient seen comfortably lying in bed, breathing even and unlabored, no SOB, no apparent distress noted, denies any pain or discomfort at this time, no grimacing. Call light left within reach, safety precautions in place, brakes locked, side rails up X 2, will monitor closely for any changes.
[2021-11-05] MEDS: OXYBUTYNIN CHLORIDE ER 5 MG TAB PO SCH (10:10)
[2021-11-05] MEDS: TAMSULOSIN 0.4 MG CAP.SR.24H PO SCH (10:10)
[2021-11-05] MEDS: PANTOPRAZOLE 40 MG VIAL IV SCH (10:10)
[2021-11-05] MEDS: FINASTERIDE (5 MG) 5 MG TABLET PO SCH (10:10)
[2021-11-05] MEDS: ASPIRIN 81 MG TAB.CHEW PO SCH (10:10)
[2021-11-05] MEDS: THIAMINE HCL 100 MG TABLET PO SCH (10:10)
[2021-11-05] MEDS: LOSARTAN POTASSIUM 50 MG TABLET PO SCH (10:11)
[2021-11-05] MEDS: IV 1/2NS 1000 ML 1,000 ML IV PRN (12:22)
--- NOTE | 2021-11-05 18:36 | NUR ---
RN CLOSING NOTES Patient lying in bed, no shortness of breath, respirations even and unlabored, remained afebrile during shift, no dizziness, no palpitations, no chest pain. All due medications given per MD order and tolerated well. Patient has an order for IV fluids (1/2 NS at 75ml/hr) IV peripheral line on right hand covered with clean, intact and dry dressings and no swelling, no redness, no c/o pain or discomfort at site. Kept clean and dry, call light left within reach, all needs attended, aspiration precautions observed at all times, kept head of bed elevated, safety precautions in place, frequent visual checks rendered, brakes locked, side rails up X 2, will endorse to next shift for continuity of care.
--- NOTE | 2021-11-05 19:35 | NUR ---
RN NOTE PT RECEIVED IN BED. PT IS ON ROOM AIR SHOWING NO S/S OF RESP DISTRESS/SOB. BREATHING EVEN AND UNLABORED. PT IS A/OX4, ABLE TO VERBALIZE NEEDS. ON CARDIAC DIET. IV ACCESS NOTED ON RIGHT HAND #22. LINE FLUSHED, PATENT, AND INTACT WITH NO SIGNS OF INFILTRATION. 1/2 NS RUNNING AT 75 CC/HR. ALL SAFETY MEASURES IMPLEMENTED. HOB ELEVATED. CALL LIGHT WITHIN REACH. BED LOCKED AND IN LOWEST POSITION. SIDE RAILS UP. WILL CONTINUE TO MONITOR AND ASSESS FOR ANY CHANGES DURING SHIFT.
[2021-11-05 20:00] VITALS: BP 150/81
[2021-11-05] MEDS: SIMVASTATIN 20 MG TABLET PO SCH (21:38)
[2021-11-05] MEDS: ENOXAPARIN SODIUM 30 MG/0.3 ML DISP.SYRIN SQ SCH (21:38)
[2021-11-06] MEDS: IV 1/2NS 1000 ML 1,000 ML IV PRN (01:58)
[2021-11-06 04:00] VITALS: BP 140/57
[2021-11-06] MEDS: SUCRALFATE 1 G/10 ML UDC PO SCH (05:54)
[2021-11-06 06:22] LABS: BASOPHILS % (AUTO) 0.4 % (0.0-2.0); EOSINOPHILS % (AUTO) 3.2 % (0.0-6.0); HEMATOCRIT 30 % (39-51); HEMOGLOBIN 10.3 g/dL (13.5-17.5); LYMPHOCYTES # (AUTO) 1.7 K/uL (0.8-4.8); MEAN CORPUSCULAR HGB CONC 35 g/dl (31.0-36.0); MEAN CORPUSCULAR VOLUME 89 fL (80-96); MONOCYTES # (AUTO) 0.8 K/uL (0.1-1.30); NEUTROPHILS # (AUTO) 7.1 K/uL (1.8-8.9); NEUTROPHILS % (AUTO) 71.4 % (43.0-81.0); PLATELET COUNT (AUTO) 224 K/uL (150-450); RED BLOOD CELL COUNT(AUTO) 3.35 MIL/uL (4.5-6.0); WHITE BLOOD COUNT (AUTO) 9.9 K/uL (4.3-11.0)
--- NOTE | 2021-11-06 06:37 | NUR ---
RN NOTE NO CHANGES IN PT CONDITION DURING SHIFT. PT IS ON ROOM AIR SHOWING NO S/S OF RESP DISTRESS/SOB. BREATHING EVEN AND UNLABORED. PT IS A/OX4, ABLE TO VERBALIZE NEEDS. ON CARDIAC DIET. IV ACCESS NOTED ON RIGHT HAND #22. LINE FLUSHED, PATENT, AND INTACT WITH NO SIGNS OF INFILTRATION. 1/2 NS RUNNING AT 75 CC/HR. ALL SAFETY MEASURES IMPLEMENTED. PT KEPT CLEAN AND COMFORTABLE. ALL DUE MEDS GIVEN ORDERED. HOB ELEVATED. CALL LIGHT WITHIN REACH. BED LOCKED AND IN LOWEST POSITION. SIDE RAILS UP. WILL ENDORSE TO MORNING SHIFT RN FOR MARY.
[2021-11-06 07:30] LABS: CALCIUM, SERUM 8.7 mg/dL (8.5-10.1); CARBON DIOXIDE 21 mmol/L (21-32); CHLORIDE 106 mmol/L (98-107); CREATININE 2.8 mg/dL (0.6-1.3); GLUCOSE 103 mg/dL (74-106); PHOSPHORUS 2.6 mg/dL (2.5-4.9); POTASSIUM 3.8 mmol/L (3.5-5.1); SODIUM SERUM 138 mmol/L (136-145); UREA NITROGEN, BLOOD 28 mg/dL (7-18)
[2021-11-06] MEDS ORDERED: PANTOPRAZOLE 40 MG TABLET.DR PO SCH (07:30)
[2021-11-06] MEDS: TAMSULOSIN 0.4 MG CAP.SR.24H PO SCH (08:42)
[2021-11-06] MEDS: THIAMINE HCL 100 MG TABLET PO SCH (08:42)
[2021-11-06] MEDS: FINASTERIDE (5 MG) 5 MG TABLET PO SCH (08:43)
[2021-11-06] MEDS: OXYBUTYNIN CHLORIDE ER 5 MG TAB PO SCH (08:43)
[2021-11-06] MEDS: ASPIRIN 81 MG TAB.CHEW PO SCH (08:43)
[2021-11-06] MEDS: LOSARTAN POTASSIUM 50 MG TABLET PO SCH (08:43)
[2021-11-06] MEDS ORDERED: SUCR1TAB31 PO (11:07)
[2021-11-06] MEDS ORDERED: PANT40TA49 PO (11:07)
[2021-11-06] MEDS ORDERED: SUCRALFATE 1 G TABLET PO SCH (12:00)
[2021-11-06 12:15] VITALS: BP 154/68
--- NOTE | 2021-11-06 13:40 | NUR ---
MS NUTRITION THERAPIST NOTES PATIENT DISCHARGED HOME IN MEDICALLY STABLE CONDITION. PATIENT A/O X4 ABLE TO MAKE NEEDS KNOWN. ALL DISCHARGE DOCUMENTATION READY AND PHYSICIAN DISCHARGE INSTRUCTIONS PROVIDED TO PATIENT AND FAMILY; PATIENT AND FAMILY VERBALIZED UNDERSTANDING. BELONGINGS ACCOUNTED FOR AND FORM SIGNED WELL. IV ACCESS REMOVE PRIOR TO PATIENT LEAVING THE FLOOR. PATIENT LEFT THE UNIT VIA WHEELCHAIR ACCOMPANIED BY RN AND DAUGHTER. PATIENT LEFT THE HOSPITAL IN A PRIVATE CAR.
== END 2021-11-06 13:22 | disposition home or self-care (01) | DRG 640 ==
LOC: ER 12:06 → TRANSITION 17:32 → TELE1 20:20 → MEDSG1 23:55
PROVIDERS: ADMIT Nurse Practitioner Acute Care; ATTEND Nurse Practitioner Acute Care
DX: E86.0 Dehydration (principal); N17.0 Acute kidney failure with tubular necrosis; I16.0 Hypertensive urgency; I10 Essential (primary) hypertension; N40.1 Benign prostatic hyperplasia with lower urinary tract symptoms; D63.8 Anemia in other chronic diseases classified elsewhere; E78.5 Hyperlipidemia, unspecified; K21.9 Gastro-esophageal reflux disease without esophagitis; Z86.73 Personal history of transient ischemic attack (TIA), and cerebral infarction without residual deficits; Z79.82 Long term (current) use of aspirin; R53.1 Weakness; Z20.822 Contact with and (suspected) exposure to COVID-19; N40.0 Benign prostatic hyperplasia without lower urinary tract symptoms; F10.10 Alcohol abuse, uncomplicated
CPT/HCPCS: 36415; 76770-TC; 80048-TC; 80061-TC; 80076-TC; 81001; 82550-TC; 83735-TC; 84100-TC; 84484-TC; 85025-TC; 87081-TC; C9113; G0378; J0360; J1650; J2405; J3411; J3490; J7030; J7060